=== PATIENT | female | born 1970 | race Hispanic/Latino ===

== ENCOUNTER 2017-10-13 12:02 | Inpatient (IN) | payer OTHER ==
[~2017-10-13] VITALS: Ht 152.4 cm; Wt 123.8 kg
[~2017-10-13 12:02] MED LIST: AZITHROMYCIN250 MG PO; COLACE100 MG PO; COZAAR25 MG PO; CYCLOBENZAPRINE5 MG PO; GABAPENTIN400 MG PO; GLIMEPIRIDE2 MG PO; LASIX20 MG PO; LEVAQUIN250 MG PO; LEVAQUIN500 MG PO; LOSARTAN POTAS100 MG PO; LYRICA75 MG PO; MAXIDE PO; METFORMIN HCL500 MG PO; NORCO 7.5-3251 EACH PO; NOVOLOG100 UNITS1 SQ; PANTOPRAZOLE SO40 MG PO; PREDNISONE5 MG PO; PROMETHAZINE HC25 M1 PO; SIMPONI50 MG/0.1 IM; TRESIBA SQ; TRIAMTERENE-HCTZ1 EA PO; TYLENOL WITH C1 EACH PO; Z.0.LIPITOR10 MG PO; Z.0.LISINOPRIL20 MG PO; Z.0.SINGULAIR10 MG PO; Z.1.LISINOPRIL-HCT1 PO; Z.2.METFORMIN HCL500 PO; ZYRTEC-D TABLE1 EACH PO
[2017-10-13 15:41] LABS: BASOPHILS % 0.3 % (0.0-1.0); EOSINOPHILS # (AUTO) 0.1 (0.0-0.4); EOSINOPHILS % 0.9 % (0.0-6.0); HEMATOCRIT 44.1 % (34.2-44.1); LYMPHOCYTES # (AUTO) 2.3 (1.0-3.2); LYMPHOCYTES % 19.2 % (18.0-39.1); MEAN CORPUSCULAR HEMOGLOBIN 31.6 pg (28-32); MONOCYTES # (AUTO) 0.6 (0.2-0.8); MONOCYTES % 5.2 % (4.4-11.3); NEUTROPHILS # (AUTO) 8.7 (2.1-6.9); NEUTROPHILS % 73.8 % (38.7-80.0); PLATELET COUNT 239 x10e3/uL (140-360); RED BLOOD COUNT 4.74 x10e6/uL (3.6-5.1); RED CELL DISTRIBUTION WIDTH 11.9 % (11.7-14.4)
[2017-10-13] MEDS ORDERED: DIATRIZOATE MEGL/DIATRIZOA SOD 30 ML BTL PO ONE (15:48)
[2017-10-13 15:49] LABS: BILIRUBIN,URINE 1+ (NEGATIVE); CLARITY,URINE HAZY (CLEAR); COLOR,URINE AMBER (YELLOW); KETONES,URINE TRACE (NEGATIVE); LEUKOCYTE ESTERASE ,URINE TRACE (NEGATIVE); NITRITE,URINE NEGATIVE (NEGATIVE); PROTEIN,URINE DIPSTICK 1+ (NEGATIVE); URINE UROBILINOGEN 1 mg/dL (0.2 - 1)
[2017-10-13 16:00] LABS: EPITHELIAL CELLS,URINE MANY /LPF
[2017-10-13 16:01] LABS: BACTERIA,URINE RARE /HPF; RBC,URINE 0-5 /HPF (0-5); WBC,URINE (MAN) 0-5 /HPF (0-5)
[2017-10-13 16:02] LABS: ALANINE AMINOTRANSFERASE 31 IU/L (0-55); ALBUMIN 3.8 g/dL (3.5-5.0); ALBUMIN/GLOBULIN RATIO 0.9 (0.8-2.0); ALKALINE PHOSPHATASE 93 IU/L (40-150); ANION GAP 15.9 mmol/L (8-16); BLOOD UREA NITROGEN 14 mg/dL (7-26); BUN/CREATININE RATIO 18 (6-25); CALCIUM 9.7 mg/dL (8.4-10.2); CARBON DIOXIDE 25 mmol/L (22-29); CHLORIDE 103 mmol/L (98-107); CREATININE, SERUM 0.78 mg/dL (0.57-1.11); EST GLOMERULAR FILTRATION RATE > 60 ML/MIN (60-); GLUCOSE 167 mg/dL (74-118); POTASSIUM 3.9 mmol/L (3.5-5.1); SODIUM 140 mmol/L (136-145)
[2017-10-13] MEDS ORDERED: MORPHINE SULFATE 2 MG/ML SYR IV STA (16:34)
--- NOTE | 2017-10-13 18:21 | Diagnostic Imaging Report ---
EXAM: CT Abdomen and Pelvis WITH contrast INDICATION: Rectal pain. Recent colonoscopy. Concern for perirectal abscess. COMPARISON: 09/23/10. TECHNIQUE: Abdomen and pelvis were scanned utilizing a multidetector helical scanner from the lung base to the pubic symphysis after administration of IV contrast. Coronal and sagittal reformations were obtained. Routine protocol was performed. Scan was performed when during portal venous phase. IV CONTRAST: 100 cc Isovue-370 ORAL CONTRAST: Gastrografin and water mixture. RADIATION DOSE: Total DLP: 872.27 mGy*cm Estimated effective dose: (DLP x 0.015 x size factor) mSv COMPLICATIONS: None FINDINGS: LINES and TUBES: None. LOWER THORAX: Unremarkable HEPATOBILIARY: Diffuse hepatic steatosis. No focal hepatic lesions. No biliary ductal dilation. GALLBLADDER: Surgically absent. SPLEEN: No splenomegaly. PANCREAS: No focal masses or ductal dilatation. ADRENALS: No adrenal nodules KIDNEYS/URETERS: Kidneys enhance symmetrically. No hydronephrosis. No cystic or solid mass lesions. No stones. GI TRACT: No bowel dilatation to suggest obstruction. There is mild asymmetric wall thickening of the left posterior lateral wall of the rectum measuring 1.9 cm on image 75, without associated fluid collections. Appendix is nonvisualized. PELVIC ORGANS/BLADDER: Status post hysterectomy. LYMPH NODES: No lymphadenopathy. VESSELS: Unremarkable. PERITONEUM / RETROPERITONEUM: No free air or fluid. BONES: Degenerative disc disease at L4-L5 and L5-S1. SOFT TISSUES: Diastases of the abdominal wall musculature. Supra umbilical ventral abdominal hernia with aperture measuring 1.7 cm on image 42 series 2; hernia sac contains a small volume of fat. A larger supraumbilical hernia with aperture measuring 3.4 cm on image 50 series 2, with a moderate sized sac containing mesenteric fat only. No herniated bowel loops. November evidence of obstruction or incarceration. IMPRESSION: 1. No evidence of a perirectal abscess as per clinical query. Mild asymmetric wall thickening of the left posterolateral wall of the lower rectum is nonspecific without surrounding inflammatory changes. 2. Hepatic steatosis. 3. Status post cholecystectomy. No significant biliary dilatation. 4. Fat-containing ventral abdominal hernias. Signed by: Dr. Angie Barrera M.D. on 10/13/2017 6:17 PM
[2017-10-13] MEDS ORDERED: SODIUM CHLORIDE 0.9% 50ML 50 ML ONE (19:28)
[2017-10-13] MEDS ORDERED: IOPAMIDOL 370 MG/ML 200 ML INFUS..BTL INJ ONE (19:28)
[2017-10-13] MEDS ORDERED: ONDANSETRON HCL INJ 2 MG/ML VIAL IV PRN ×2 (19:30→20:00)
[2017-10-13] MEDS ORDERED: HYDROMORPHONE 1MG/1ML INJ IV ONE (19:40)
[2017-10-13] MEDS ORDERED: ACETAMINOPHEN 1000 MG/100 ML IV PRN (20:00)
[2017-10-13] MEDS ORDERED: DEXTROSE 50% SYRINGE 50 ML IV PRN (20:00)
[2017-10-13] MEDS ORDERED: GOLIMUMAB 50 MG IM SCH (20:00)
[2017-10-13] MEDS: SODIUM CHLORIDE 0.9% 1000ML 1,000 ML IV SCH (20:33)
[2017-10-13] MEDS: CLINDAMYCIN PHOS 900MG/ D5W 50 50 ML IV SCH (20:33)
[2017-10-13] MEDS: INSULIN REGULAR, HUMAN 100 UNIT/1 ML 3ML VIAL SQ SCH (21:00)
[2017-10-13] MEDS ORDERED: PROMETHAZINE 25MG/ NS 50ML (IV) IV ONE (21:30)
[2017-10-13 21:45] VITALS: BP 137/92
[2017-10-14] VITALS (7 sets, daily range): BP systolic 112–143; BP diastolic 74–98
[2017-10-14] MEDS: HYDROMORPHONE 1MG/1ML INJ IV PRN ×4 (02:43→20:07)
[2017-10-14] MEDS: PROMETHAZINE 25MG/ NS 50ML (IV) IV PRN ×3 (02:43→20:07)
[2017-10-14] MEDS: CLINDAMYCIN PHOS 900MG/ D5W 50 50 ML IV SCH ×3 (04:20→20:07)
[2017-10-14] MEDS: SODIUM CHLORIDE 0.9% 1000ML 1,000 ML IV SCH ×3 (06:13→20:23)
[2017-10-14] MEDS ORDERED: GOLIMUMAB PO SCH (06:45)
[2017-10-14] MEDS ORDERED: GOLIMUMAB IM SCH (06:45)
[2017-10-14 06:56] LABS: BASOPHILS % 0.2 % (0.0-1.0); EOSINOPHILS # (AUTO) 0.1 (0.0-0.4); EOSINOPHILS % 1.1 % (0.0-6.0); HEMATOCRIT 37.4 % (34.2-44.1); HEMOGLOBIN 12.8 g/dL (12.0-16.0); LYMPHOCYTES # (AUTO) 2.2 (1.0-3.2); LYMPHOCYTES % 20.7 % (18.0-39.1); MEAN CORPUSCULAR HEMOGLOBIN 32.4 pg (28-32); MEAN CORPUSCULAR HGB CONC 34.2 g/dL (31-35); MEAN CORPUSCULAR VOLUME 94.7 fL (81-99); MONOCYTES # (AUTO) 0.7 (0.2-0.8); MONOCYTES % 6.3 % (4.4-11.3); NEUTROPHILS # (AUTO) 7.4 (2.1-6.9); NEUTROPHILS % 71.1 % (38.7-80.0); PLATELET COUNT 199 x10e3/uL (140-360); RED BLOOD COUNT 3.95 x10e6/uL (3.6-5.1); RED CELL DISTRIBUTION WIDTH 12.2 % (11.7-14.4)
[2017-10-14 07:23] LABS: ALANINE AMINOTRANSFERASE 39 IU/L (0-55); ALBUMIN/GLOBULIN RATIO 0.9 (0.8-2.0); ALKALINE PHOSPHATASE 76 IU/L (40-150); ANION GAP 13.8 mmol/L (8-16); BLOOD UREA NITROGEN 13 mg/dL (7-26); BUN/CREATININE RATIO 18 (6-25); CALCIUM 9.2 mg/dL (8.4-10.2); CARBON DIOXIDE 26 mmol/L (22-29); CHLORIDE 104 mmol/L (98-107); CREATININE, SERUM 0.74 mg/dL (0.57-1.11); EST GLOMERULAR FILTRATION RATE > 60 ML/MIN (60-); GLUCOSE 159 mg/dL (74-118); POTASSIUM 3.8 mmol/L (3.5-5.1); SODIUM 140 mmol/L (136-145)
[2017-10-14] MEDS: INSULIN REGULAR, HUMAN 100 UNIT/1 ML 3ML VIAL SQ SCH ×4 (07:30→21:00)
[2017-10-14] MEDS: LOSARTAN POTASSIUM 100 MG TAB PO SCH (08:20)
[2017-10-14] MEDS: GABAPENTIN 400 MG CAP PO SCH ×2 (08:25→17:00)
[2017-10-14] MEDS: TRIAMTERENE/HCTZ 37.5-25 MG TAB PO SCH (08:25)
[2017-10-14] MEDS: PREDNISONE 5 MG TAB PO SCH (09:00)
[2017-10-14] MEDS: CYCLOBENZAPRINE HCL 10 MG TAB PO SCH (09:00)
[2017-10-14] MEDS ORDERED: INFLUENZA VIRUS VAC SPLIT INJ 0.5 ML SYR IM NR (11:00)
[2017-10-14] MEDS ORDERED: PNEUMOCOCCAL VACCINE POLYVALENT 23 MCG/0.5 ML VIAL IM NR (11:00)
[2017-10-14] MEDS ORDERED: BUPIVACAINE 0.25%/EPI 30ML SDV INJ ONE (11:56)
[2017-10-14] MEDS ORDERED: LIDOCAINE HCL 2% 30 ML TUBE ONE (11:56)
[2017-10-14] MEDS ORDERED: LIDOCAINE HCL 1% LOCAL INJ 20 ML VIAL ONE (11:57)
[2017-10-14] MEDS ORDERED: GELATIN SPONGE SZ 100 ONE (12:14)
--- NOTE | 2017-10-14 16:20 | Operative Report ---
DATE OF PROCEDURE: October 14, 2017 PREOPERATIVE DIAGNOSIS: Anorectal fistula with perirectal abscess. POSTOPERATIVE DIAGNOSIS: Anorectal fistula with perirectal abscess. OPERATION PERFORMED: Incision and drainage of perirectal abscess and fistulectomy. ANESTHESIA: General. COMPLICATIONS: None. ESTIMATED BLOOD LOSS: Minimal. DESCRIPTION OF PROCEDURE: With the patient lying in bed in the lithotomy position and under good general endotracheal anesthesia, the perineum was prepped with Betadine solution and draped in the usual manner. At the 7 o'clock position, there was a small opening to perirectal abscess, which easily cannulated into a fistulous tract. The fistula tract was then opened and the entire fistula tract was opened without any difficulty. The abscess cavity was then debrided. The whole thing was then infiltrated with 0.25% Marcaine solution. The fistula tract and abscess were then fully cleaned out. Once this was done, a dressing was applied. The sponge, lap and needle count was correct. Patient tolerated the procedure well and returned to the recovery room in stable condition. Job#: [id number]
[2017-10-14] MEDS ORDERED: PROPOFOL IV EMULSION 10 MG/ML 20 ML VIAL ONE (17:58)
[2017-10-14] MEDS ORDERED: LIDOCAINE HCL 2% LOCAL INJ 5 ML SDV VIAL INJ ONE (17:58)
[2017-10-14] MEDS ORDERED: MIDAZOLAM HCL 2 MG/2 ML VIAL ONE (18:43)
[2017-10-14] MEDS ORDERED: FENTANYL CITRATE/PF 100MCG/2 ML INJ ONE (18:43)
[2017-10-15 01:47] VITALS: BP 102/66
[2017-10-15] MEDS: CLINDAMYCIN PHOS 900MG/ D5W 50 50 ML IV SCH ×2 (04:10→12:00)
[2017-10-15] MEDS: HYDROMORPHONE 1MG/1ML INJ IV PRN (04:30)
[2017-10-15] MEDS: PROMETHAZINE 25MG/ NS 50ML (IV) IV PRN (04:30)
[2017-10-15 06:47] LABS: BASOPHILS % 0.2 % (0.0-1.0); EOSINOPHILS # (AUTO) 0.1 (0.0-0.4); EOSINOPHILS % 1.4 % (0.0-6.0); HEMATOCRIT 38.2 % (34.2-44.1); LYMPHOCYTES # (AUTO) 2.7 (1.0-3.2); LYMPHOCYTES % 29.6 % (18.0-39.1); MEAN CORPUSCULAR HEMOGLOBIN 32.3 pg (28-32); MONOCYTES # (AUTO) 0.6 (0.2-0.8); MONOCYTES % 6.4 % (4.4-11.3); NEUTROPHILS # (AUTO) 5.7 (2.1-6.9); PLATELET COUNT 217 x10e3/uL (140-360); RED BLOOD COUNT 4.02 x10e6/uL (3.6-5.1); RED CELL DISTRIBUTION WIDTH 12.3 % (11.7-14.4)
[2017-10-15 07:08] VITALS: BP 113/58
[2017-10-15 07:11] LABS: ANION GAP 16.5 mmol/L (8-16); BLOOD UREA NITROGEN 13 mg/dL (7-26); BUN/CREATININE RATIO 16 (6-25); CALCIUM 9.4 mg/dL (8.4-10.2); CARBON DIOXIDE 23 mmol/L (22-29); CHLORIDE 102 mmol/L (98-107); CREATININE, SERUM 0.79 mg/dL (0.57-1.11); EST GLOMERULAR FILTRATION RATE > 60 ML/MIN (60-); GLUCOSE 189 mg/dL (74-118); POTASSIUM 3.5 mmol/L (3.5-5.1); SODIUM 138 mmol/L (136-145)
[2017-10-15 07:36] VITALS: BP 131/83
[2017-10-15] MEDS: INSULIN REGULAR, HUMAN 100 UNIT/1 ML 3ML VIAL SQ SCH ×3 (08:00→16:30)
[2017-10-15] MEDS: GABAPENTIN 400 MG CAP PO SCH ×2 (08:30→17:00)
[2017-10-15] MEDS: LOSARTAN POTASSIUM 100 MG TAB PO SCH (08:35)
[2017-10-15] MEDS: CYCLOBENZAPRINE HCL 10 MG TAB PO SCH (08:35)
[2017-10-15] MEDS: TRIAMTERENE/HCTZ 37.5-25 MG TAB PO SCH (08:35)
[2017-10-15] MEDS: PREDNISONE 5 MG TAB PO SCH (09:00)
[2017-10-15] MEDS: HYDROCODONE/APAP 7.5MG-325MG 1 EA TAB PO PRN ×2 (09:36→18:13)
[2017-10-15 11:27] VITALS: BP 98/68
[2017-10-15 15:53] VITALS: BP 129/83
[2017-10-15] MEDS ORDERED: PNEUMOCOCCAL VACCINE POLYVALENT 23 MCG/0.5 ML VIAL IM NR (16:45)
[2017-10-15] MEDS ORDERED: INFLUENZA VIRUS VAC SPLIT INJ 0.5 ML SYR IM NR (17:00)
== END 2017-10-15 19:22 | disposition home or self-care (01) | DRG 333 ==
LOC: ER 12:02 → MED/SURG3 19:52
PROVIDERS: ADMIT Surgery; ATTEND Surgery
PROC: 0DBQ0ZZ Excision of Anus, Open Approach (ICD-10-PCS; principal; 2017-10-14 13:30)
PROC: 0DBP0ZZ Excision of Rectum, Open Approach (ICD-10-PCS; principal; 2017-10-14 13:30)
DX: K60.5 Anorectal fistula (principal); K61.1 Rectal abscess; Z68.43 Body mass index [BMI] 50.0-59.9, adult; E66.01 Morbid (severe) obesity due to excess calories; Z88.1 Allergy status to other antibiotic agents; Z88.8 Allergy status to other drugs, medicaments and biological substances
CPT/HCPCS: 36415; 74177; 80048; 80053; 81001; 82948; 85025; 87086; 90732; 96361; 99284; J1170; J2001; J2250; J2270; J2405; J2550; J7030; J7512; Q9967

== ENCOUNTER → 2020-08-28 | Outpatient (CLI) | payer OTHER ==
[~2020-08-28] MED LIST changes: +DIATRIZOATE MEGL/DIATRIZOA SOD 30 ML BTL PO ONE; +IOPAMIDOL 370 MG/ML 200 ML INFUS..BTL INJ ONE; +SODIUM CHLORIDE 0.9% 50ML 50 ML ONE
[2020-08-28 17:57] LABS: BLOOD UREA NITROGEN 12 mg/dL (7-26); BUN/CREATININE RATIO 15 (6-25); CREATININE, SERUM 0.78 mg/dL (0.57-1.11); EST GLOMERULAR FILTRATION RATE > 60 ML/MIN (60-)
--- NOTE | 2020-08-28 18:46 | Diagnostic Imaging Report ---
EXAM: CT Abdomen and Pelvis WITH contrast INDICATION: Abdominal pain. Hernia. Cholecystectomy. Pelvic surgery. Intestinal surgery. Constipation COMPARISON: 10/13/2017 TECHNIQUE: Abdomen and pelvis were scanned utilizing a multidetector helical scanner from the lung base to the pubic symphysis after administration of IV contrast. Coronal and sagittal reformations were obtained. Routine protocol was performed. Scan was performed when during portal venous phase. IV CONTRAST: 150 mL of Isovue-370 ORAL CONTRAST: Gastrografin RADIATION DOSE: Total DLP: 723 mGy*cm Estimated effective dose: (DLP x 0.015 x size factor) mSv COMPLICATIONS: None FINDINGS: LINES and TUBES: None. LOWER THORAX: Unremarkable HEPATOBILIARY: Diffuse hepatic steatosis. No focal hepatic lesions. No biliary ductal dilation. GALLBLADDER: Surgically absent. SPLEEN: No splenomegaly. PANCREAS: No focal masses or ductal dilatation. ADRENALS: No adrenal nodules KIDNEYS/URETERS: Kidneys enhance symmetrically. No hydronephrosis. No cystic or solid mass lesions. No stones. GI TRACT: No bowel dilatation to suggest obstruction. No focal bowel abnormality. Appendix is nonvisualized. PELVIC ORGANS/BLADDER: Status post hysterectomy. LYMPH NODES: No lymphadenopathy. VESSELS: Unremarkable. PERITONEUM / RETROPERITONEUM: No free air or fluid. BONES: Degenerative disc disease at L4-L5 and L5-S1. SOFT TISSUES: Diastases of the abdominal wall musculature. Supra umbilical ventral abdominal hernia with aperture measuring 1.7 cm essentially unchanged hernia sac contains a small volume of fat. A larger supraumbilical hernia with aperture measuring 3.4 cm essentially unchanged with a moderate sized sac containing mesenteric fat only. No herniated bowel loops. There is a small calcification within this fat-containing hernia likely due to fat necrosis. November evidence of obstruction or incarceration. IMPRESSION: 1. No focal bowel abnormality or obstruction. 2. Hepatic steatosis. 3. Status post cholecystectomy. No significant biliary dilatation. 4. Fat-containing ventral abdominal hernias. These are essentially unchanged. Signed by: Dr. Adan Brasher M.D. on 08/28/2020 6:42 PM
== END ==
LOC: CT 16:59
PROVIDERS: ATTEND Surgery
DX: R10.9 Unspecified abdominal pain (principal); K43.9 Ventral hernia without obstruction or gangrene
CPT/HCPCS: 36415; 74177; 82565; 84520; Q9967